=== PATIENT | female | born 1980 | race Hispanic/Latino ===

== ENCOUNTER 2018-05-08 08:56 | Emergency (ER) | payer BC, OTHER ==
[2018-05-08 09:14] LABS: APPEARANCE,URINE Clear (CLEAR); BILIRUBIN,URINE Negative (NEGATIVE); COLOR,URINE Yellow (YELLOW); GLUCOSE, URINE (UA) Negative (NEGATIVE); KETONES,URINE Negative (NEGATIVE); LEUKOCYTE ESTERASE ,URINE Negative (NEGATIVE); NITRATE,URINE Negative (NEGATIVE); OCCULT BLOOD,URINE Moderate (NEGATIVE); PROTEIN,URINE Trace (NEGATIVE)
[2018-05-08] MEDS ORDERED: TAMSULOSIN HCL 0.4 MG CAP.ER.24H ONE (09:16)
[2018-05-08] MEDS ORDERED: KETOROLAC TROMETHAMINE 30MG/ML ONE (09:16)
[2018-05-08 09:19] LABS: BASOPHILS % (AUTO) 0.7 % (0.0-5.0); EOSINOPHILS % (AUTO) 1.5 % (0.0-8.0); HEMATOCRIT 43.6 % (36-48); LYMPHOCYTES % (AUTO) 34.7 % (21.0-51.0); MEAN CORPUSCULAR HEMOGLOBIN 29.8 pg (27.0-33.0); MEAN CORPUSCULAR HGB CONC 34.5 g/dL (32.0-36.0); MEAN CORPUSCULAR VOLUME 86.5 fL (79-99); MONOCYTES % (AUTO) 6.1 % (3.0-13.0); PLATELET COUNT (AUTO) 350 K/uL (130-400); RED BLOOD CELL COUNT(AUTO) 5.04 MIL/uL (4.00-5.50); RED CELL DISTRIBUTION WIDTH 13.5 % (11.0-15.5); WHITE BLOOD COUNT (AUTO) 9.9 K/uL (4.8-10.8)
[2018-05-08] MEDS ORDERED: ONDANSETRON HCL MDV 20ML 2 MG/ML VIAL ONE (09:19)
[2018-05-08] MEDS ORDERED: MORPHINE SULFATE 4 MG/1ML SYG ONE (09:23)
[2018-05-08 09:26] LABS: MUCUS,URINE Few LPF (None Seen); SQUAMOUS EPITHELIAL CELL,UR Few /HPF (0-2)
[2018-05-08 09:27] LABS: BACTERIA,URINE Moderate /HPF (None Seen); RBC,URINE 51-100 /HPF (0-1); WBC,URINE 0-1 /HPF (0-1)
[2018-05-08 09:31] LABS: CREATININE 0.8 mg/dL (0.5-1.5)
[2018-05-08 09:36] LABS: ALBUMIN 3.7 g/dL (3.5-5.0); BILIRUBIN,TOTAL 0.5 mg/dL (0.2-1.0); TOTAL PROTEIN, SERUM 8.3 g/dL (6.0-8.3)
[2018-05-08] MEDS ORDERED: HYDROMORPHONE 1 MG/1 ML AMP ONE (09:45)
== END 2018-05-08 11:46 | disposition home or self-care (01) ==
LOC: EDH 08:56
DX: N23 Unspecified renal colic (principal); Z87.442 Personal history of urinary calculi
CPT/HCPCS: 36415; 76770; 80053; 81001; 81025; 85025; 96374; 96375; 99285; J1170; J1885; J2270

== ENCOUNTER 2018-09-05 09:05 | Emergency (ER) | payer BC ==
[2018-09-05] MEDS ORDERED: ONDANSETRON HCL 4 MG/2 ML VIAL ONE (09:44)
[2018-09-05] MEDS ORDERED: SODIUM CHLORIDE 0.9% 1000ML 1,000 ML IV ONE (09:44)
[2018-09-05] MEDS ORDERED: KETOROLAC TROMETHAMINE 30MG/ML ONE (09:44)
[2018-09-05 10:05] LABS: CREATININE 0.9 mg/dL (0.5-1.5); POTASSIUM 3.6 mmol/L (3.5-5.1)
[2018-09-05 10:11] LABS: BASOPHILS % (AUTO) 0.9 % (0.0-5.0); EOSINOPHILS % (AUTO) 1.8 % (0.0-8.0); HEMATOCRIT 41.8 % (36-48); LYMPHOCYTES % (AUTO) 29.1 % (21.0-51.0); MEAN CORPUSCULAR HEMOGLOBIN 29.8 pg (27.0-33.0); MEAN CORPUSCULAR VOLUME 87.7 fL (79-99); MONOCYTES % (AUTO) 6.9 % (3.0-13.0); NEUTROPHILS % (AUTO) 61.3 % (40.0-77.0); NUCLEATED RED BLOOD CELLS 0.1 % (0.0-0.19); PLATELET COUNT (AUTO) 348 K/uL (130-400); RED BLOOD CELL COUNT(AUTO) 4.76 MIL/uL (4.00-5.50); RED CELL DISTRIBUTION WIDTH 13.9 % (11.0-15.5); WHITE BLOOD COUNT (AUTO) 8.2 K/uL (4.8-10.8)
[2018-09-05 10:12] LABS: ALBUMIN 3.6 g/dL (3.5-5.0); BILIRUBIN,DIRECT 0.1 mg/dL (0.0-0.3); BILIRUBIN,TOTAL 0.3 mg/dL (0.2-1.0); TOTAL PROTEIN, SERUM 7.8 g/dL (6.0-8.3)
[2018-09-05 10:42] LABS: APPEARANCE,URINE Clear (CLEAR); BILIRUBIN,URINE Negative (NEGATIVE); COLOR,URINE Yellow (YELLOW); GLUCOSE, URINE (UA) Negative (NEGATIVE); KETONES,URINE Negative (NEGATIVE); LEUKOCYTE ESTERASE ,URINE Small (NEGATIVE); NITRATE,URINE Negative (NEGATIVE); OCCULT BLOOD,URINE Trace (NEGATIVE); PROTEIN,URINE Negative (NEGATIVE)
[2018-09-05 10:45] LABS: HCG,QUAL RESULT NEGATIVE (NEGATIVE)
[2018-09-05 10:48] LABS: AMPHET/METH SCREEN,URINE NEGATIVE (NEGATIVE); BARBITURATE SCREEN, URINE NEGATIVE (NEGATIVE); BENZODIAZEPINES SCREEN,URINE NEGATIVE (NEGATIVE); CANNABINOID SCREEN,URINE NEGATIVE (NEGATIVE); COCAINE SCREEN,URINE NEGATIVE (NEGATIVE); OPIATE SCREEN,URINE NEGATIVE (NEGATIVE); PHENCYCLIDINE SCREEN,URINE NEGATIVE (NEGATIVE)
[2018-09-05 11:03] LABS: BACTERIA,URINE Few /HPF (None Seen); MUCUS,URINE Few LPF (None Seen); SQUAMOUS EPITHELIAL CELL,UR Few /HPF (0-2); WBC,URINE 0-1 /HPF (0-1)
[2018-09-05 11:04] LABS: RBC,URINE 0-1 /HPF (0-1)
[2018-09-05] MEDS ORDERED: MORPHINE SULFATE 4 MG/1ML SYG ONE (14:08)
== END 2018-09-05 14:46 | disposition home or self-care (01) ==
LOC: EDH 09:05
DX: R10.32 Left lower quadrant pain (principal); N83.202 Unspecified ovarian cyst, left side; Z88.0 Allergy status to penicillin; Z87.442 Personal history of urinary calculi
CPT/HCPCS: 36415; 74176; 76856; 80048; 80076; 80305; 81001; 81025; 83690; 85025; 96374; 96375; 99285; J1885; J2270; J2405; J7030

== ENCOUNTER 2019-07-27 21:58 | Emergency (ER) | payer BC ==
[2019-07-27 23:04] LABS: BASOPHILS % (AUTO) 0.5 % (0.0-5.0); EOSINOPHILS % (AUTO) 1.3 % (0.0-8.0); HEMATOCRIT 41.3 % (36-48); LYMPHOCYTES % (AUTO) 24.4 % (21.0-51.0); MEAN CORPUSCULAR HEMOGLOBIN 30.3 pg (27.0-33.0); MEAN CORPUSCULAR HGB CONC 34.6 g/dL (32.0-36.0); MEAN CORPUSCULAR VOLUME 87.6 fL (79-99); MONOCYTES % (AUTO) 7.9 % (3.0-13.0); NEUTROPHILS % (AUTO) 65.9 % (40.0-77.0); PLATELET COUNT (AUTO) 303 K/uL (130-400); RED BLOOD CELL COUNT(AUTO) 4.72 MIL/uL (4.00-5.50); WHITE BLOOD COUNT (AUTO) 10.3 K/uL (4.8-10.8)
[2019-07-27 23:07] LABS: APPEARANCE,URINE Clear (CLEAR); BILIRUBIN,URINE Negative (NEGATIVE); COLOR,URINE Yellow (YELLOW); GLUCOSE, URINE (UA) Negative (NEGATIVE); KETONES,URINE Negative (NEGATIVE); LEUKOCYTE ESTERASE ,URINE Small (NEGATIVE); NITRATE,URINE Negative (NEGATIVE); OCCULT BLOOD,URINE Moderate (NEGATIVE); PROTEIN,URINE Negative (NEGATIVE)
[2019-07-27 23:09] LABS: HCG,QUAL RESULT NEGATIVE (NEGATIVE)
[2019-07-27] MEDS ORDERED: ONDANSETRON HCL 4 MG/2 ML VIAL ONE (23:10)
[2019-07-27] MEDS ORDERED: METOCLOPRAMIDE 10 MG/2 ML VIAL ONE (23:10)
[2019-07-27] MEDS ORDERED: KETOROLAC TROMETHAMINE 30MG/ML ONE (23:10)
[2019-07-27] MEDS ORDERED: SODIUM CHLORIDE 0.9% 1000ML 1,000 ML IV ONE (23:12)
[2019-07-27 23:14] LABS: POTASSIUM 3.8 mmol/L (3.5-5.1)
[2019-07-27 23:15] LABS: INR 0.93 (0.85-1.15); PARTIAL THROMBOPLASTIN TIME 26.5 SEC (26.3-35.5); PROTHROMBIN TIME 9.8 SEC (9.6-11.6)
[2019-07-27 23:19] LABS: ALBUMIN 3.7 g/dL (3.5-5.0); BILIRUBIN,TOTAL 0.2 mg/dL (0.2-1.0)
[2019-07-27 23:29] LABS: BACTERIA,URINE Few /HPF (None Seen); CALCIUM OXALATE CRYSTALS,UR Moderate /LPF (None Seen)
[2019-07-28] MEDS ORDERED: ORPHENADRINE CITRATE 30 MG/ML ML ONE (02:31)
== END 2019-07-28 02:41 | disposition home or self-care (01) ==
LOC: EDH 21:58
DX: N83.202 Unspecified ovarian cyst, left side (principal); E86.9 Volume depletion, unspecified; Z88.0 Allergy status to penicillin; Z87.442 Personal history of urinary calculi
CPT/HCPCS: 36415; 74176; 76856; 80053; 81001; 81025; 82550; 83605; 83690; 85025; 85610; 85730; 96374; 96375 ×2; 99285; J1885; J2360; J2405; J2765; J7030

== ENCOUNTER 2020-01-07 09:54 | Emergency (ER) | payer BC ==
[2020-01-07] MEDS ORDERED: ASPIRIN 325 MG TABLET ONE (10:04)
[2020-01-07] MEDS ORDERED: ONDANSETRON HCL 4 MG/2 ML VIAL ONE (10:04)
[2020-01-07 10:19] LABS: BASOPHILS % (AUTO) 0.7 % (0.0-5.0); EOSINOPHILS % (AUTO) 4.8 % (0.0-8.0); LYMPHOCYTES % (AUTO) 30.8 % (21.0-51.0); MEAN CORPUSCULAR HEMOGLOBIN 28.8 pg (27.0-33.0); MEAN CORPUSCULAR HGB CONC 33.4 g/dL (32.0-36.0); MEAN CORPUSCULAR VOLUME 86.1 fL (79-99); NEUTROPHILS % (AUTO) 56.3 % (40.0-77.0); PLATELET COUNT (AUTO) 361 K/uL (130-400); RED BLOOD CELL COUNT(AUTO) 4.76 MIL/uL (4.00-5.50); WHITE BLOOD COUNT (AUTO) 6.9 K/uL (4.8-10.8)
[2020-01-07 10:28] LABS: CREATININE 0.7 mg/dL (0.5-1.5); POTASSIUM 3.8 mmol/L (3.5-5.1)
[2020-01-07 10:30] LABS: INR 0.93 (0.85-1.15); PARTIAL THROMBOPLASTIN TIME 26.7 SEC (26.3-35.5); PROTHROMBIN TIME 9.8 SEC (9.6-11.6)
[2020-01-07 10:31] LABS: AMYLASE 51 U/L (25-115); LIPASE 95 U/L (114-286)
[2020-01-07 10:33] LABS: ALBUMIN 3.7 g/dL (3.5-5.0); BILIRUBIN,TOTAL 0.2 mg/dL (0.2-1.0); TOTAL PROTEIN, SERUM 7.6 g/dL (6.0-8.3)
[2020-01-07 11:27] LABS: APPEARANCE,URINE Cloudy (CLEAR); BILIRUBIN,URINE Negative (NEGATIVE); COLOR,URINE Yellow (YELLOW); GLUCOSE, URINE (UA) Negative (NEGATIVE); KETONES,URINE Negative (NEGATIVE); LEUKOCYTE ESTERASE ,URINE Trace (NEGATIVE); NITRATE,URINE Negative (NEGATIVE); OCCULT BLOOD,URINE Small (NEGATIVE); PROTEIN,URINE Negative (NEGATIVE); UROBILINOGEN,URINE 0.2 mg/dL (0.2-1.0)
[2020-01-07 11:38] LABS: AMPHET/METH SCREEN,URINE NEGATIVE (NEGATIVE); BARBITURATE SCREEN, URINE NEGATIVE (NEGATIVE); BENZODIAZEPINES SCREEN,URINE NEGATIVE (NEGATIVE); CANNABINOID SCREEN,URINE NEGATIVE (NEGATIVE); COCAINE SCREEN,URINE NEGATIVE (NEGATIVE); OPIATE SCREEN,URINE NEGATIVE (NEGATIVE); PHENCYCLIDINE SCREEN,URINE NEGATIVE (NEGATIVE)
[2020-01-07 11:48] LABS: BACTERIA,URINE Moderate /HPF (None Seen); WBC,URINE 0-1 /HPF (0-1)
[2020-01-07 11:49] LABS: SQUAMOUS EPITHELIAL CELL,UR Moderate /HPF (0-2)
== END 2020-01-07 14:13 | disposition home or self-care (01) ==
LOC: EDH 09:54
DX: R07.89 Other chest pain (principal); Z90.710 Acquired absence of both cervix and uterus; Z88.0 Allergy status to penicillin
CPT/HCPCS: 36415; 71045; 80053; 80305; 81001; 82150; 82550; 83690; 84484 ×2; 85025; 85610; 85730; 93005 ×2; 96374; 99285; J2405

== ENCOUNTER → 2020-10-22 | Outpatient (CLI) | payer BC | END | disposition home or self-care (01) | LOC: RAH 13:29 | PROVIDERS: ATTEND Nurse Practitioner Adult Health | DX: E04.1 Nontoxic single thyroid nodule (principal); R59.0 Localized enlarged lymph nodes; R05 Cough | CPT/HCPCS: 71046; 76536 ==

== ENCOUNTER → 2025-08-06 | Outpatient (CLI) | payer BC ==
--- NOTE | 2025-08-06 21:07 | HMCIMG ---
EXAM: XR Chest, 1 View. CLINICAL HISTORY: 44 year old female with cough. COMPARISON: XR Chest dated 10/22/2020. FINDINGS: LUNGS: The lungs are clear. No consolidation. PLEURAL SPACES: No pleural effusion or pneumothorax. HEART: The heart size is normal. BONES: No acute osseous abnormality. Note: The report states "negative chest" which implies that there are no significant findings, and the comparison to the previous study dated 10/22/2020 shows no change. IMPRESSION: 1. No acute cardiopulmonary pathology. 2. similar to XR Chest 10/22/2020 /[place]
== END | disposition home or self-care (01) ==
LOC: RAH 14:14
PROVIDERS: ATTEND Nurse Practitioner Adult Health
DX: R05.9 Cough, unspecified (principal)
CPT/HCPCS: 71046

== ENCOUNTER → 2025-09-20 | Outpatient (CLI) | payer BC ==
[~2025-09-20] MED LIST: IOHEXOL-350 50ML VIAL IV ONE
--- NOTE | 2025-09-20 22:00 | HMCIMG ---
EXAM: CT CHEST WITH CONTRAST Technique: Helical contrast-enhanced computed tomography of the chest from lung apices through the upper abdomen with thin-section axial acquisition and coronal/sagittal reformations; lung and soft-tissue algorithms reviewed. Contrast: Standard dose of intravenous iodinated contrast administered. Clinical Information: Cough; personal history of malignant neoplasm of the thyroid. Comparison: Chest radiograph dated 08/06/2025 at 14:48 EDT. Findings: Soft tissues: Unremarkable. Lungs and large airways: Tracheobronchial tree is patent. Linear atelectatic bands in the left lower lobe. A few discrete peribronchial ground-glass/nodular opacities in the lateral segment of the right middle lobe. No focal lobar consolidation. Pleura: No pleural effusion or pneumothorax. Heart and pericardium: Heart size within normal limits; no pericardial effusion. Aorta: Proximal aorta measures 30 mm; no aneurysmal dilatation. Pulmonary arteries: No filling defect to suggest pulmonary embolism (study not tailored as CT pulmonary angiography). Lymph nodes: No enlarged mediastinal or hilar lymph nodes by size criteria. Mediastinum and allen: No mediastinal mass. Chest wall and lower neck: No abnormality identified. Bones/joints: No acute osseous abnormality. Upper abdomen: No acute abnormality; status post cholecystectomy. Impression: * Scattered peribronchial ground-glass/nodular opacities in the right middle lobe with linear atelectasis in the left lower lobe???pattern most compatible with mild infectious/inflammatory bronchiolitis or subsegmental atelectasis in the appropriate clinical context. Correlate with symptoms and consider short-interval radiographic or CT follow-up if symptoms persist. * No pleural effusion, pneumothorax, or focal lobar consolidation. * No mediastinal or hilar lymphadenopathy. In the setting of prior thyroid malignancy, there is no CT evidence of thoracic metastatic disease on today???s exam. * Proximal aorta 30 mm (non-aneurysmal). * No pulmonary embolism detected on this contrast-enhanced, non-angiographic study. /Crum
== END | disposition home or self-care (01) ==
LOC: RAH 10:10
PROVIDERS: ATTEND Nurse Practitioner Adult Health
DX: J98.11 Atelectasis (principal); R05.9 Cough, unspecified; Z85.850 Personal history of malignant neoplasm of thyroid
CPT/HCPCS: 71260; Q9967